=== PATIENT | female | born 1995 | race Two or more races ===

== ENCOUNTER 2020-09-14 00:09 | Emergency (ER) | payer MEDICAID, OTHER ==
[~2020-09-14] VITALS: Ht 167.6 cm; Wt 145.0 kg
[2020-09-14 00:28] VITALS: BP 189/90
[2020-09-14] MEDS ORDERED: CLINDAMYCIN HCL 150 MG CAPSULE PO ONE (00:45)
[2020-09-14] MEDS ORDERED: oxyCODONE/APAP 5/325 1 TAB TABLET PO ONE (00:45)
[2020-09-14] MEDS ORDERED: HYDR-2155 PO (00:47)
[2020-09-14] MEDS ORDERED: CLIN300C9 PO (00:47)
--- NOTE | 2020-09-14 00:47 | PHYS DOC ---
Past History Past Medical History: No Pertinent History Past Surgical History: Cholecystectomy, Oophorectomy Alcohol Use: None Adult General Chief Complaint Chief Complaint: DENTAL PROBLEM HPI HPI Patient is a 25-year-old female who presents with dental pain. States that her back right molar broke a few months ago and over the last couple of days it st arted causing her some pain, 7 out of 10, sharp in nature. States she has had trouble finding a dentist. States she has not taken anything for the pain. Denies any fevers, pain or trouble swallowing, neck pain, chest pain, shortness of breath, abdominal pain, nausea, vomiting. Review of Systems Review of Systems Review of systems otherwise unremarkable except noted in HPI Allergies Allergies Allergies Coded Allergies Type Severity Reaction Last Updated Verified Penicillins Allergy Unknown 09/14/20 Yes Physical Exam Physical Exam Constitutional: Well developed, well nourished, no acute distress, non-toxic appearance. [] HENT: Normocephalic, atraumatic, bilateral external ears normal, oropharynx moist, no oral exudates, back right lower molar with what appears to be a dental carry and chipped, nose normal. [] Neck: Normal range of motion, no tenderness, supple, no stridor, no lymphadenopathy. [] Cardiovascular:Heart rate regular rhythm, no murmur [] Lungs & Thorax: No respiratory distress Neurologic: Alert and oriented X 3, normal motor function, normal sensory function, no focal deficits noted. [] Psychologic: Affect normal, judgement normal, mood normal. [] Current Patient Data Vital Signs Vital Signs Date Time Temp Pulse Resp B/P (MAP) Pulse Ox O2 Delivery O2 Flow Rate FiO2 09/14/20 00:28 98.8 106 28 189/90 (123) 100 EKG EKG [] Radiology/Procedures Radiology/Procedures [] Heart Score C/O Chest Pain: No Risk Factors: Risk Factors: DM, Current or recent (<one month) smoker, HTN, HLP, family history of CAD, obesity. Risk Scores: Risk Factors: DM, Current or recent (<one month) smoker, HTN, HLP, family history of CAD, obesity. Course & Med Decision Making Course & Med Decision Making Patient is a 25-year-old female who presents with dental pain due to her right lower molar damage Vital signs not concerning. Physical exam noted above. Patient started on clindamycin in the ED, gave ibuprofen and oral pain medication. Patient politely declined dental block. Discussed all findings with patient advised taking course of antibiotics and given pain regimen at home. Given contact information for local dentist and emergency dentistry and advised to call first thing Wednesday morning. Gave return precautions to the ED. Patient grateful, verbalized understanding and agreed with plan of discharge. [] Dragon Disclaimer Dragon Disclaimer This electronic medical record was generated, in whole or in part, using a voice recognition dictation system. Departure Departure: Impression: Primary Impression: Pain, dental Additional Impression: Pain due to dental caries Disposition: HOME / SELF CARE / HOMELESS Condition: GOOD Referrals: SHER MORRISON (PCP) Patient Instructions: Dental Pain Additional Instructions: Please read all the attached information very carefully. Please begin your prescription pain medicine, ibuprofen, Orajel treatment at home as discussed. Please call the emergency dentist or one of the dentist at the information provided as soon as possible to set up a follow-up appointment for evaluation and possible need for root canal versus extraction. Please come back to the ED with new or concerning symptoms as discussed. Scripts Hydrocodone Bit/Acetaminophen (HYDROCODONE-APAP 5-325 ) 1 Each Tablet 1 TAB PO TID PRN for dental pain for 3 Days, #9 TAB 0 Refills Prov: LOGAN LAM MD 09/14/20 Clindamycin Hcl (CLINDAMYCIN HCL) 300 Mg Capsule 1 CAP PO TID for dental pain for 7 Days, #21 CAP Prov: LOGAN LAM MD 09/14/20 Problem Qualifiers LOGAN LAM MD September 14, 2020 00:47
[2020-09-14] MEDS ORDERED: IBUPROFEN 800 MG TABLET. PO ONE (01:00)
== END 2020-09-14 00:57 | disposition home or self-care (01) ==
LOC: ER 00:09
DX: K02.9 Dental caries, unspecified (principal); Z88.0 Allergy status to penicillin; Z90.49 Acquired absence of other specified parts of digestive tract
CPT/HCPCS: 99284-25

== ENCOUNTER 2021-04-23 20:19 | Emergency (ER) | payer OTHER ==
[~2021-04-23] VITALS: Ht 167.6 cm; Wt 145.0 kg
[~2021-04-23 20:19] MED LIST: CLIN-95 PO; HYDR-2155 PO
--- NOTE | 2021-04-23 21:06 | PHYS DOC ---
Past History Past Medical History: No Pertinent History, Bronchitis Past Surgical History: Cholecystectomy, Oophorectomy Alcohol Use: None General Adult EDM: Chief Complaint: FEVER HPI: HPI: ".. I almost passed out at home.. I was diagnosed with COVID on . the 04/18.. I did not get the vaccination..." .. " I am so short of breath.. that it made me almost pass out.. " Patient is a 25 year old female who presents with above hx and complaints increased dyspnea, fever, malaise, arthralgia, myalgia and near syncope. Patient diagnosed Covid on 04/18. Patient did not get the vaccination. Patient did not get flu vaccination. Patient has not gotten Pneumovax. Patient does have a history of asthma and morbid obesity. Review of Systems: Review of Systems: Constitutional: Subjective complaints of fever or chills Eyes: Denies change in visual acuity HENT: Denies nasal congestion or sore throat Respiratory: Complains of a nonproductive cough, wheezing and shortness of breath Cardiovascular: Denies chest pain or edema GI: Denies abdominal pain, nausea, vomiting, bloody stools or diarrhea : Denies dysuria Musculoskeletal: Denies back pain or joint pain Integument: Denies rash Neurologic: Denies headache, focal weakness or sensory changes Endocrine: Denies polyuria or polydipsia Lymphatic: Denies swollen glands Psychiatric: Denies depression or anxiety Family History: Family History: Noncontributory to presentation Current Medications: Current Meds: See nursing for home meds Allergies: Allergies: Allergies Coded Allergies Type Severity Reaction Last Updated Verified Penicillins Allergy Unknown 09/14/20 Yes Physical Exam: PE: Constitutional: no acute distress, non-toxic appearance. [] HENT: Normocephalic, atraumatic, bilateral external ears normal, oropharynx moist, no oral exudates, nose normal. [] Eyes: PERRLA, EOMI, conjunctiva normal, no discharge. [] Neck: Normal range of motion, no tenderness, supple, no stridor. [] Cardiovascular: Tachycardia heart rate regular rhythm, no murmur [] Lungs & Thorax: Bilateral breath sounds clear to auscultation [] Abdomen: Bowel sounds normal, soft, no tenderness, no masses, no pulsatile masses. Morbid obesity. Old surgery scars. Skin: Warm, dry, no erythema, no rash. [] Back: No tenderness, no CVA tenderness. [] Extremities: No tenderness, no cyanosis, no clubbing, ROM intact, no edema. No cording appreciated Neurologic: Alert and oriented X 3, normal motor function, normal sensory function, no focal deficits noted. [] Psychologic: Affect normal, judgement normal, mood normal. [] EKG: EKG: My interpretation of patient's EKG shows a sinus tachycardia 114 bpm. No acute findings of STEMI with contralateral changes. Time of EKG is 2217 hrs. [] Radiology/Procedures: Radiology/Procedures: [][address] [id number] IMAGING REPORT Signed PATIENT: DUGLAS FERNANDEZ ACCOUNT: [id number] : 1995 LOCATION: ER AGE: 25 SEX: F EXAM STATUS: REG ER ORD. PHYSICIAN: IVETTE DOUGLASS MD REASON: dyspnea, cough, congestion, Covid Omni 350 100cc PROCEDURE: CT ANGIOGRAPHY CHEST EXAM: CT ANGIOGRAPHY OF THE CHEST WITH AND WITHOUT CONTRAST. HISTORY: Cough, dyspnea. TECHNIQUE: Computed tomographic angiography of the chest was performed before and after the intravenous administration of iodinated contrast. 3-D maximum intensity projections were also performed. One or more of the following individualized dose reduction techniques were utilized for this examination: 1. Automated exposure control. 2. Adjustment of the mA and/or kV according to patient size. 3. Use of iterative reconstruction technique. COMPARISON: None. FINDINGS: Images of the upper abdomen reveal diffuse hepatic steatosis. The spleen is enlarged at 15.6 cm. The gallbladder is surgically absent. Bone windows reveal no suspicious lesions. No pulmonary emboli are identified. There is no aortic dissection or aneurysm. Prominent mediastinal and hilar lymph nodes are likely reactive in this setting. There is no pleural or pericardial effusion. The heart is not enlarged. Multifocal groundglass infiltrates are consistent with atypical pneumonia. IMPRESSION: 1. No pulmonary embolism. 2. Multifocal infiltrates consistent with atypical pneumonia. 3. Diffuse hepatic steatosis and hepatomegaly. Electronically signed by: Geraldo Bateman MD (04/23/2021 11:21 PM) [facility] DICTATED AND SIGNED BY: HELEN BATEMAN MD DATE: 04/23/212311 CC: IVETTE DOUGLASS MD; SHER MORRISON ~MTH0 0 [facility] [place] [id number] IMAGING REPORT Signed PATIENT: DUGLAS FERNANDEZ ACCOUNT: [id number] : 1995 LOCATION: ER AGE: 25 SEX: F EXAM STATUS: REG ER ORD. PHYSICIAN: IVETTE DOUGLASS MD REASON: COVID Dx. , dyspnea, cough, congestion PROCEDURE: CHEST AP ONLY EXAM: CHEST ONE VIEW. HISTORY: Dyspnea, cough, COVID-19. COMPARISON: Today's CT. FINDINGS: A frontal view of the chest is obtained. Multifocal airspace infiltrates are consistent with atypical pneumonia. The inspiration is small. There is no pneumothorax or pleural effusion. The heart is not enlarged. Cholecystectomy clips are noted. IMPRESSION: 1. Multifocal infiltrates consistent with atypical pneumonia. Electronically signed by: Geraldo Bateman MD (04/23/2021 11:22 PM) [facility] DICTATED AND SIGNED BY: HELEN BATEMAN MD DATE: 04/23/212320 CC: IVETTE DOUGLASS MD; SHER MORRISON ~MTH0 0 Heart Score: C/O Chest Pain: N/A HEART Score for Chest Pain: HEART Score for Chest Pain Response (Comments) Value History Moderately Suspicious 1 ECG Normal 0 Age < 45 0 Risk Factors 1 or 2 Risk Factors 1 Troponin < Normal Limit 0 Total 2 Risk Factors: Risk Factors: DM, Current or recent (<one month) smoker, HTN, HLP, family history of CAD, obesity. Risk Scores: Score 0 - 3: 2.5% MACE over next 6 weeks - Discharge Home Score 4 - 6: 20.3% MACE over next 6 weeks - Admit for Clinical Observation Score 7 - 10: 72.7% MACE over next 6 weeks - Early Invasive Strategies Course & Med Decision Making: Course & Med Decision Making Pertinent Labs and Imaging studies reviewed. (See chart for details) Patient use MDI 2 puffs 4 times a day. Follow-up primary care. Push fluids. Follow-up urine cultures. Take at this time next to 50 a day. Tylenol and ibuprofen as needed for discomfort. Patient taking Zithromax 250 mg a day for the next 5 days. Take Eliquis 10 mg twice a day for the next week. Follow-up primary care. Practice incentive spirometry. Return if any concerns. Follow- up urine cultures. Impression: 1. Covid infection 2. Urinary tract infection [] Dragon Disclaimer: Dragon Disclaimer: This electronic medical record was generated, in whole or in part, using a voice recognition dictation system. Departure Departure: Referrals: SHER MORRISON (PCP) Scripts Apixaban (ELIQUIS) 5 Mg Tablet 10 MG PO BID for covid for 7 Days, #28 TAB Prov: IVETTE DOUGLASS MD 04/23/21 Fluconazole (DIFLUCAN) 100 Mg Tablet 100 MG PO DAILY for post antibiotics for 3 Days, #3 TAB Prov: IVETTE DOUGLASS MD 04/23/21 Azithromycin (ZITHROMAX) 250 Mg Tablet 250 MG PO DAILY for ANTI-BIOTIC for 5 Days, #5 TAB 0 Refills Prov: IVETTE DOUGLASS MD 04/23/21 IVETTE DOUGLASS MD Apr 23, 2021 21:06
[2021-04-23] MEDS ORDERED: AZITHROMYCIN 250 MG TABLET. PO ONE (21:45)
[2021-04-23] MEDS ORDERED: IV RINGERS SOLUTION,LACTATED 1,000 ML IV SCH (21:45)
[2021-04-23] MEDS ORDERED: ASPIRIN CHEWABLE 81 MG TABLET. PO ONE (21:45)
[2021-04-23] MEDS ORDERED: ALBUTEROL SULFATE 8GM INHALER. INH ONE (21:45)
[2021-04-23] MEDS ORDERED: IOHEXOL 350 MG/ML 100 ML VIAL. IV ONE (22:00)
[2021-04-23 22:09] VITALS: BP 148/84
[2021-04-23 22:13] LABS: COLOR,URINE YELLOW
[2021-04-23 22:14] LABS: BILIRUBIN,URINE SMALL (NEG); CLARITY,URINE HAZY; GLUCOSE,URINE NEG (NEG); NITRITE,URINE POS (NEG)
[2021-04-23 22:15] LABS: BASO # 0.1 x10^3/uL (0.0-0.2); BASO % 1 % (0-3); EOS % 0 % (0-3); HEMATOCRIT 39.6 % (36.0-47.0); HEMOGLOBIN 13.1 g/dL (12.0-15.5); LYMPH # 0.9 x10^3/uL (1.0-4.8); LYMPH % 13 % (24-48); MEAN CORPUSCULAR HEMOGLOBIN 29 pg (25-35); MEAN CORPUSCULAR HGB CONC 33 g/dL (31-37); MEAN CORPUSCULAR VOLUME 88 fL (79-100); MONO # 0.4 x10^3/uL (0.0-1.1); MONO % 5 % (0-9); NEUT # 5.5 x10^3uL (1.8-7.7); NEUT % 81 % (31-73); PLATELET COUNT 151 x10^3/uL (140-400); RED BLOOD COUNT 4.53 x10^6/uL (3.50-5.40); RED CELL DISTRIBUTION WIDTH 14.7 % (11.5-14.5); U PREG PATIENT NEGATIVE (NEG); WHITE BLOOD COUNT 6.8 x10^3/uL (4.0-11.0)
[2021-04-23 22:23] LABS: AMPHETAMINE/METHAMPHETAMINE NEG (NEG); BARBITURATES NEG (NEG); BENZODIAZEPINES NEG (NEG); CANNABINOIDS NEG (NEG); COCAINE NEG (NEG); METHADONE NEG (NEG); OPIATES NEG (NEG); PHENCYCLIDINE NEG (NEG)
[2021-04-23 22:49] LABS: BGAS PH 7.54 (7.35-7.45)
--- NOTE | 2021-04-23 23:24 | RAD ---
EXAM: CT ANGIOGRAPHY OF THE CHEST WITH AND WITHOUT CONTRAST. HISTORY: Cough, dyspnea. TECHNIQUE: Computed tomographic angiography of the chest was performed before and after the intraveno us administration of iodinated contrast. 3-D maximum intensity projections were also performed. One o r more of the following individualized dose reduction techniques were utilized for this examination: 1. Automated exposure control. 2. Adjustment of the mA and/or kV according to patient size. 3. Use of iterative reconstruction technique. COMPARISON: None. FINDINGS: Images of the upper abdomen reveal diffuse hepatic steatosis. The spleen is enlarged at 15. 6 cm. The gallbladder is surgically absent. Bone windows reveal no suspicious lesions. No pulmonary emboli are identified. There is no aortic dissection or aneurysm. Prominent mediastinal and hilar lymph nodes are likely reactive in this setting. There is no pleural or pericardial effusion. The heart is not enlarged. Multifocal groundglass infiltrates are consistent with atypical pneumonia. IMPRESSION: 1. No pulmonary embolism. 2. Multifocal infiltrates consistent with atypical pneumonia. 3. Diffuse hepatic steatosis and hepatomegaly. Electronically signed by: Geraldo Bateman MD (04/23/2021 11:21 PM) [facility]
--- NOTE | 2021-04-23 23:24 | RAD ---
EXAM: CHEST ONE VIEW. HISTORY: Dyspnea, cough, COVID-19. COMPARISON: Today's CT. FINDINGS: A frontal view of the chest is obtained. Multifocal airspace infiltrates are consistent with atypical pneumonia. The inspiration is small. The re is no pneumothorax or pleural effusion. The heart is not enlarged. Cholecystectomy clips are noted . IMPRESSION: 1. Multifocal infiltrates consistent with atypical pneumonia. Electronically signed by: Geraldo Bateman MD (04/23/2021 11:22 PM) [facility]
[2021-04-23] MEDS ORDERED: FLUC100T7 PO (23:49)
[2021-04-23] MEDS ORDERED: APIX5TAB3 PO (23:49)
[2021-04-23] MEDS ORDERED: AZIT250T PO (23:49)
[2021-04-24] LABS: CALCIUM 7.7 mg/dL (8.5-10.1); GFR 67.6
[2021-04-24] MEDS ORDERED: APIXABAN 5 MG TABLET. ONE (00:10)
[2021-04-24] MEDS: APIXABAN 5 MG TABLET. PO SCH ×2 (00:12→00:32)
[2021-04-24 00:15] LABS: ALBUMIN 3.1 g/dL (3.4-5.0); DIRECT BILIRUBIN 0.2 mg/dL (0.0-0.2); MAGNESIUM 2.4 mg/dL (1.8-2.4); TOTAL BILIRUBIN 0.4 mg/dL (0.2-1.0); TOTAL PROTEIN 7.5 g/dL (6.4-8.2)
[2021-04-24] MEDS ORDERED: ACETAMINOPHEN 500 MG TABLET PO ONE (00:15)
--- NOTE | 2021-04-24 02:43 | EKG ---
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
[2021-04-24] MEDS ORDERED: ENOX150D SQ (18:54)
== END 2021-04-24 00:34 | disposition home or self-care (01) ==
LOC: ER 20:19
DX: U07.1 COVID-19 (principal); N39.0 Urinary tract infection, site not specified; Z88.0 Allergy status to penicillin; Z90.49 Acquired absence of other specified parts of digestive tract
CPT/HCPCS: 36415; 36600; 71045; 71275; 80048; 80076; 80307; 81003; 81025; 82550; 82803; 83690; 83735; 83880; 84443; 84484; 85025; 85610; 85730; 93005; 94640; 96360; 96361; 99285; J7120; Q9967; 94664

== ENCOUNTER 2021-04-24 16:42 | Emergency (ER) | payer OTHER ==
[~2021-04-24] VITALS: Ht 167.6 cm; Wt 145.0 kg
[~2021-04-24 16:42] MED LIST changes: +APIX5TAB3 PO; +AZIT250T PO; +FLUC100T7 PO
--- NOTE | 2021-04-24 18:32 | PHYS DOC ---
Past History Past Medical History: No Pertinent History, Bronchitis Past Surgical History: No Surgical History Alcohol Use: None General Adult EDM: Chief Complaint: DYSPNEA/RESPIRATOY DISTRESS HPI: HPI: Patient is a 25 year old female who presents with above hx and complaints of fever and COVID +. as of 04/18. Patient seen 04/23/2021 by this physician. Patient concerned because at home she checked her sat and it was in the 80s. Patient refused to get vaccination distally now upset she has contracted Covid. Patient is morbidly obese patient did undergo. CT of contrast last night no findings of pulmonary embolism identified. Did have findings of multifocal groundglass infiltrates consistent with atypical pneumonia. Did have findings hepatic steatosis and hepatomegaly. Patient has been running fever however did not take any Tylenol or ibuprofen. Review of Systems: Review of Systems: Constitutional: Denies fever or chills Eyes: Denies change in visual acuity HENT: Denies nasal congestion or sore throat Respiratory: Denies cough or shortness of breath Cardiovascular: Denies chest pain or edema GI: Denies abdominal pain, nausea, vomiting, bloody stools or diarrhea : Denies dysuria Musculoskeletal: Denies back pain or joint pain Integument: Denies rash Neurologic: Denies headache, focal weakness or sensory changes Endocrine: Denies polyuria or polydipsia Lymphatic: Denies swollen glands Psychiatric: Denies depression or anxiety Family History: Family History: Noncontributory Current Medications: Current Meds: Current Medications Medications (Trade) Dose Ordered Sig/Kvng Start Time Stop Time Status Last Admin Dose Admin Acetaminophen (Tylenol) 1,000 mg 1X ONCE 04/24/21 18:45 04/24/21 18:46 Ondansetron HCl (Zofran Odt) 4 mg 1X ONCE 04/24/21 18:45 04/24/21 18:46 Allergies: Allergies: Allergies Coded Allergies Type Severity Reaction Last Updated Verified Penicillins Allergy Unknown 09/14/20 Yes Physical Exam: PE: Constitutional: Moderate acute distress, non-toxic appearance. [] HENT: Normocephalic, atraumatic, bilateral external ears normal, oropharynx moist, no oral exudates, nose swollen turbinates clear rhinorrhea Eyes: PERRLA, EOMI, conjunctiva normal, no discharge. [] Neck: Normal range of motion, no tenderness, supple, no stridor. [] Cardiovascular: Tachycardia heart rate regular rhythm, no murmur [] Lungs & Thorax: Bilateral breath sounds clear to auscultation [] Abdomen: Bowel sounds equal apex soft, no tenderness, no masses, no pulsatile masses. Basilar crackles bilaterally. Skin: Warm, dry, no erythema, no rash. [] Back: No tenderness, no CVA tenderness. [] Extremities: No tenderness, no cyanosis, no clubbing, ROM intact, no edema. No cording appreciated Neurologic: Alert and oriented X 3, normal motor function, normal sensory function, no focal deficits noted. [] Psychologic: Affect anxious, judgement normal, mood normal. [] EKG: EKG: [] Radiology/Procedures: Radiology/Procedures: [] Heart Score: C/O Chest Pain: N/A Risk Factors: Risk Factors: DM, Current or recent (<one month) smoker, HTN, HLP, family history of CAD, obesity. Risk Scores: Score 0 - 3: 2.5% MACE over next 6 weeks - Discharge Home Score 4 - 6: 20.3% MACE over next 6 weeks - Admit for Clinical Observation Score 7 - 10: 72.7% MACE over next 6 weeks - Early Invasive Strategies Course & Med Decision Making: Course & Med Decision Making Pertinent Labs and Imaging studies reviewed. (See chart for details) Pt. declines repeat ABG to verify oxygen and CO 2 levels. Patient continue her MDI 2 puffs 4 times a day. Follow-up primary care. Continue Zithromax 250 a day. Continue Eliquis 10 mg twice a day for the next week. Must practice incentive spirometry. Return if any concerns. Instructed patient on use of pulse ox.. Hand mostly warm before application of pulse ox. Pt. to return if any concerns. Impression: 1. COVID pneumonia 2. Urinary tract infection 3. Morbid obesity [] Dragon Disclaimer: Dragon Disclaimer: This electronic medical record was generated, in whole or in part, using a voice recognition dictation system. Departure Departure: Referrals: SHER MORRISON (PCP) Scripts Enoxaparin Sodium (LOVENOX) 150 Mg/1 Ml Disp.syrin 150 MG SQ DAILY for COVID, #10 DIS.SYR Prov: IVETTE DOUGLASS MD 04/24/21 David Disclaimer This chart was dictated in whole or in part using Voice Recognition software in a busy, high-work load, and often noisy Emergency Department environment. It may contain unintended and wholly unrecognized errors or omissions. Dragon Disclaimer This chart was dictated in whole or in part using Voice Recognition software in a busy, high-work load, and often noisy Emergency Department environment. It may contain unintended and wholly unrecognized errors or omissions. IVETTE DOUGLASS MD Apr 24, 2021 18:32
[2021-04-24] MEDS ORDERED: ACETAMINOPHEN 500 MG TABLET PO ONE (18:45)
[2021-04-24] MEDS ORDERED: ONDANSETRON ODT 4 MG TAB.RAPDIS PO ONE (18:45)
[2021-04-24 18:49] VITALS: BP 148/84
[2021-04-24] MEDS ORDERED: ENOX150D SQ (18:54)
[2021-04-24] MEDS ORDERED: IBUPROFEN 600 MG TABLET. PO ONE (19:30)
[2021-04-24] MEDS ORDERED: ENOXAPARIN ** NOTE DOSE ** SYRINGE SQ ONE (19:30)
== END 2021-04-24 19:14 | disposition home or self-care (01) ==
LOC: ER 16:42
DX: U07.1 COVID-19 (principal); J12.82 Pneumonia due to coronavirus disease 2019; N39.0 Urinary tract infection, site not specified; E66.01 Morbid (severe) obesity due to excess calories; Z68.43 Body mass index [BMI] 50.0-59.9, adult; Z88.0 Allergy status to penicillin
CPT/HCPCS: 99284; G0238; Q0162

== ENCOUNTER 2021-04-25 06:48 | Emergency (ER) | payer OTHER ==
[~2021-04-25] VITALS: Ht 167.6 cm; Wt 145.0 kg
[~2021-04-25 06:48] MED LIST changes: +ENOX150D SQ
[2021-04-25 06:50] VITALS: BP 137/76
--- NOTE | 2021-04-25 07:56 | PHYS DOC ---
Past History Past Medical History: No Pertinent History, Bronchitis Past Surgical History: No Surgical History Alcohol Use: None General Adult EDM: Chief Complaint: SHORTNESS OF BREATH HPI: HPI: Patient is a 25-year-old female here for her third visit for shortness of breath after kym COVID-19. Patient had extensive work-up 2 days ago. Patient states her oxygen is dropping down to 80s on her home pulse ox, was seen yesterday stating she was having oxygen saturations in the 80s Review of Systems: Review of Systems: All other systems within normal limits except for as noted in the HPI Allergies: Allergies: Allergies Coded Allergies Type Severity Reaction Last Updated Verified Penicillins Allergy Unknown 09/14/20 Yes Physical Exam: PE: Constitutional: Well developed, well nourished, no acute distress, non-toxic appearance. [] HENT: Normocephalic, atraumatic, bilateral external ears normal, nose normal. [] Eyes: PERRLA, conjunctiva normal, no discharge. [] Neck: No rigidity, supple, no stridor. [] Cardiovascular: Regular rate and rhythm, brisk cap refill [] Lungs & Thorax: Non labored symmetric respirations, no tachypnea or respiratory distress [] Abdomen: Soft, nondistended. Skin: Warm, dry, no erythema, no rash. [] Back: Unremarkable Extremities: No deformities, range of motion grossly intact, no lower extremity edema [] Neurologic: Alert and oriented X 3, no focal deficits noted. [] Psychologic: Affect normal, judgement normal, mood normal. [] EKG: EKG: [] Radiology/Procedures: Radiology/Procedures: Patient is oxygen saturation in the mid to low 90s, discussed with patient that she needs to use her inhaler and given a spacer and instructed on proper use [] Heart Score: C/O Chest Pain: No Risk Factors: Risk Factors: DM, Current or recent (<one month) smoker, HTN, HLP, family history of CAD, obesity. Risk Scores: Score 0 - 3: 2.5% MACE over next 6 weeks - Discharge Home Score 4 - 6: 20.3% MACE over next 6 weeks - Admit for Clinical Observation Score 7 - 10: 72.7% MACE over next 6 weeks - Early Invasive Strategies Course & Med Decision Making: Course & Med Decision Making Pertinent Labs and Imaging studies reviewed. (See chart for details) [] Dragon Disclaimer: Dragon Disclaimer: This electronic medical record was generated, in whole or in part, using a voice recognition dictation system. Departure Departure: Impression: Primary Impression: COVID Disposition: 01 HOME / SELF CARE / HOMELESS Condition: STABLE Referrals: SHER MORRISON (PCP) Patient Instructions: Metered Dose Inhaler with Spacer SEGUNDO FIELD MD Apr 25, 2021 07:56
== END 2021-04-25 08:30 | disposition home or self-care (01) ==
LOC: ER 06:48
DX: U07.1 COVID-19 (principal); Z88.0 Allergy status to penicillin
CPT/HCPCS: 99281

== ENCOUNTER 2021-04-26 06:23 | Inpatient (IN) | payer OTHER ==
[~2021-04-26] VITALS: Ht 167.6 cm; Wt 142.2 kg
--- NOTE | 2021-04-26 06:29 | PHYS DOC ---
Past History Past Medical History: Asthma, Bronchitis Past Surgical History: No Surgical History Alcohol Use: None Adult General HPI HPI Patient is a 25-year-old female presenting for COVID-19 symptoms. Reports she was confirmed Covid positive April 18. Reports her symptoms that are mostly respiratory in origin have prompted her to come in past 4 days, she has been here every day since April 23 for evaluation. She continues to complain of shortness of breath and reported desaturations with lowest in the 60s while at home per her pulse ox. Continues to take prescribed a Zithromax, PE Tx dose of Eliquis and MDI inhalers. No recent fevers, syncope, chills, neck pain or nuchal rigidity, chest pain, ripping or tearing in chest, abdominal pain, GI symptoms, changes in motor or sensory or neuro function. She was unvaccinated against COVID-19 Review of Systems Review of Systems Fourteen body systems of review of systems have been reviewed. See HPI for pertinent positives and negative responses, other sommers all other systems are negative, non-pertinent or non-contributory Allergies Allergies Allergies Coded Allergies Type Severity Reaction Last Updated Verified Penicillins Allergy Unknown 09/14/20 Yes Physical Exam Physical Exam Constitutional: Well developed, well nourished and morbidly obese, no acute distress and speaking in full sentences, non-toxic appearance. HENT: Normocephalic, atraumatic, bilateral external ears normal, oropharynx moist, no oral exudates, nose normal. Eyes: PERRLA, EOMI, conjunctiva normal, no discharge. Neck: Normal range of motion, no tenderness, supple, no stridor. Cardiovascular: Heart rate tachycardic, sinus rhythm, no murmurs rubs or gallops Lungs & Thorax: No overt respiratory distress but there is increased work of breathing, patient speaking in full sentences, there are copious rhonchi to auscultation globally Abdomen: Bowel sounds normal, soft and protuberant, no tenderness, no masses, no pulsatile masses. Nonsurgical abdomen, no peritoneal signs Skin: Warm, dry, no erythema, no rash. Back: No tenderness, no CVA tenderness. Extremities: No tenderness, no cyanosis, no clubbing, ROM intact, no edema. Neurologic: Alert and oriented X 3, grossly normal motor & sensory function, no focal deficits noted. Psychologic: Anxious affect and mood Current Patient Data Vital Signs Vital Signs Date Time Temp Pulse Resp B/P (MAP) Pulse Ox O2 Delivery O2 Flow Rate FiO2 04/26/21 06:43 101.6 132 18 132/83 (99) 94 Nasal Cannula 3.0 Vital Signs Date Time Temp Pulse Resp B/P (MAP) Pulse Ox O2 Delivery O2 Flow Rate FiO2 04/26/21 06:43 101.6 132 18 132/83 (99) 94 Nasal Cannula 3.0 Lab Results Laboratory Tests Test 04/26/21 07:10 04/26/21 08:51 White Blood Count 6.9 x10^3/uL Red Blood Count 4.23 x10^6/uL Hemoglobin 12.3 g/dL Hematocrit 37.0 % Mean Corpuscular Volume 87 fL Mean Corpuscular Hemoglobin 29 pg Mean Corpuscular Hemoglobin Concent 33 g/dL Red Cell Distribution Width 14.5 % Platelet Count 192 x10^3/uL Neutrophils (%) (Auto) 81 % Lymphocytes (%) (Auto) 14 % Monocytes (%) (Auto) 5 % Eosinophils (%) (Auto) 0 % Basophils (%) (Auto) 0 % Neutrophils # (Auto) 5.6 x10^3uL Lymphocytes # (Auto) 1.0 x10^3/uL Monocytes # (Auto) 0.3 x10^3/uL Eosinophils # (Auto) 0.0 x10^3/uL Basophils # (Auto) 0.0 x10^3/uL Prothrombin Time 10.0 SEC Prothromb Time International Ratio 1.0 Activated Partial Thromboplast Time 26 SEC Bedside Venous pH 7.44 Bedside Venous pCO2 44 mmHg Bedside Venous pO2 36 mmHg Venous Blood HCO3 30 mmol/L POC Venous O2 Saturation ([place]) 71 % Bedside FiO2 21 Sodium Level 137 mmol/L Potassium Level 4.1 mmol/L Chloride Level 100 mmol/L Carbon Dioxide Level 27 mmol/L Anion Gap 10 Blood Urea Nitrogen 9 mg/dL Creatinine 0.7 mg/dL Estimated GFR (Cockcroft-Gault) 102.0 BUN/Creatinine Ratio 13 Glucose Level 117 mg/dL Lactic Acid Level 0.5 mmol/L Calcium Level 8.4 mg/dL Magnesium Level 2.6 mg/dL Total Bilirubin 0.5 mg/dL Aspartate Amino Transf (AST/SGOT) 150 U/L Alanine Aminotransferase (ALT/SGPT) 145 U/L Alkaline Phosphatase 75 U/L Troponin I High Sensitivity 4 ng/L NV-Rqu-N-Type Natriuretic Peptide 16 pg/mL Total Protein 7.9 g/dL Albumin 2.8 g/dL Albumin/Globulin Ratio 0.5 Influenza Type A (Rapid) Negative Influenza Type B (Rapid) Negative SARS-CoV-2 Antigen (Rapid) Negative Current Medications Medications (Trade) Dose Ordered Sig/Kvng Route PRN Reason Start Time Stop Time Status Last Admin Dose Admin Ceftriaxone Sodium 1 gm/ Sodium Chloride 50 ml @ 100 mls/hr 1X ONCE IV 04/26/21 06:45 04/26/21 07:14 DC 04/26/21 07:55 Sodium Chloride 1,000 ml @ 1,000 mls/hr 1X ONCE IV 04/26/21 06:45 04/26/21 07:44 DC 04/26/21 06:45 Acetaminophen (Tylenol) 1,000 mg 1X ONCE PO 04/26/21 07:15 04/26/21 07:16 DC 04/26/21 07:55 Sodium Chloride 50 ml @ As Directed STK-MED ONCE .ROUTE 04/26/21 07:50 04/26/21 07:50 DC Ceftriaxone Sodium (Rocephin) 1 gm STK-MED ONCE .ROUTE 04/26/21 07:50 04/26/21 07:50 DC Dexamethasone Sodium Phosphate (Decadron) 6 mg 1X ONCE IVP 04/26/21 08:00 04/26/21 08:02 DC 04/26/21 08:42 Acetaminophen (Tylenol) 650 mg PRN Q4HRS PRN PO FEVER > 100.3'F 04/26/21 09:15 04/27/21 09:14 Nitroglycerin (Nitrostat) 0.4 mg PRN Q5MIN PRN SL CHEST PAIN 04/26/21 09:15 04/27/21 09:14 EKG EKG EKG ordered and interpreted by myself at 0757 hrs. as sinus tachycardia at 113 bpm, unremarkable intervals, no axis deviation, T wave inversion noted in lead III, no STEMI Radiology/Procedures Radiology/Procedures XR CHEST 1V supine Clinical Indication: Reason: shob / Spl. Instructions: / History: Comparison: AP chest April 23, 2021. Findings: The cardiomediastinal silhouette is normal. Diffuse bilateral patchy airspace opacities are mildly worse. There are low lung volumes. There is no pneumothorax. No pleural effusion is appreciated. No acute bone abnormality. IMPRESSION: Diffuse bilateral pulmonary opacities are mildly worse. Electronically signed by: Bala Dumont MD (04/26/2021 7:17 AM) [facility] Heart Score C/O Chest Pain: No HEART Score for Chest Pain: HEART Score for Chest Pain Response (Comments) Value History Slighlty/Non-Suspicious 0 ECG Normal 0 Age < 45 0 Risk Factors 1 or 2 Risk Factors 1 Troponin < Normal Limit 0 Total 1 Risk Factors: Risk Factors: DM, Current or recent (<one month) smoker, HTN, HLP, family history of CAD, obesity. Risk Scores: Risk Factors: DM, Current or recent (<one month) smoker, HTN, HLP, family history of CAD, obesity. Course & Med Decision Making Course & Med Decision Making Airway patent, increased work of breathing, IV access and vitals obtained concerning for tachycardia and fever HPI physical exam and comprehensive ER work-up concerning for sepsis with source being COVID-19 pneumonia with recent outpatient positive test April 16, 2021 in an unvaccinated individual. She is high risk given obesity and asthma risk factors Steroids, antibiotics, antipyretics and supplemental oxygen administered. She is not fit for discharge home as she is requiring higher level of care than can be provided at home and still on supplemental oxygen, she was excepted under care of Dr. Martin for inpatient admission Dragon Disclaimer Dragon Disclaimer This electronic medical record was generated, in whole or in part, using a voice recognition dictation system. Departure Departure: Impression: Primary Impression: Pneumonia due to COVID-19 virus Additional Impression: Acute hypoxemic respiratory failure due to COVID-19 Disposition: ADMITTED INPATIENT Admitting Physician: Hosea Martin Condition: STABLE Referrals: SHER MORRISON (PCP) Problem Qualifiers NEISHA CASTRO DO Apr 26, 2021 06:29
[2021-04-26] MEDS ORDERED: IV NORMAL SALINE 1,000ML 1,000 ML IV ONE (06:45)
[2021-04-26] MEDS ORDERED: ACETAMINOPHEN 500 MG TABLET PO ONE ×2 (07:15→19:00)
--- NOTE | 2021-04-26 07:19 | RAD ---
XR CHEST 1V supine Clinical Indication: Reason: shob / Spl. Instructions: / History: Comparison: AP chest April 23, 2021. Findings: The cardiomediastinal silhouette is normal. Diffuse bilateral patchy airspace opacities are mildly wo rse. There are low lung volumes. There is no pneumothorax. No pleural effusion is appreciated. No acu te bone abnormality. IMPRESSION: Diffuse bilateral pulmonary opacities are mildly worse. Electronically signed by: Bala Dumont MD (04/26/2021 7:17 AM) [facility]
[2021-04-26] MEDS ORDERED: cefTRIAXone SODIUM 1 GM VIAL ONE (07:50)
[2021-04-26] MEDS ORDERED: IV NORMAL SALINE 50ML 50 ML ONE (07:50)
[2021-04-26] MEDS ORDERED: DEXAMETHASONE SOD PHOS 4 MG/ML VIAL. IVP ONE (08:00)
--- NOTE | 2021-04-26 08:01 | EKG ---
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
[2021-04-26 08:23] LABS: BASO % 0 % (0-3); EOS % 0 % (0-3); HEMOGLOBIN 12.3 g/dL (12.0-15.5); LYMPH % 14 % (24-48); MEAN CORPUSCULAR HEMOGLOBIN 29 pg (25-35); MEAN CORPUSCULAR HGB CONC 33 g/dL (31-37); MEAN CORPUSCULAR VOLUME 87 fL (79-100); MONO # 0.3 x10^3/uL (0.0-1.1); MONO % 5 % (0-9); NEUT # 5.6 x10^3uL (1.8-7.7); NEUT % 81 % (31-73); PLATELET COUNT 192 x10^3/uL (140-400); RED BLOOD COUNT 4.23 x10^6/uL (3.50-5.40); RED CELL DISTRIBUTION WIDTH 14.5 % (11.5-14.5); WHITE BLOOD COUNT 6.9 x10^3/uL (4.0-11.0)
[2021-04-26 08:40] LABS: CALCIUM 8.4 mg/dL (8.5-10.1); CREATININE 0.7 mg/dL (0.6-1.0); POTASSIUM 4.1 mmol/L (3.5-5.1)
[2021-04-26 08:54] LABS: ALBUMIN 2.8 g/dL (3.4-5.0); ALBUMIN/GLOBULIN RATIO 0.5 (1.0-1.7); MAGNESIUM 2.6 mg/dL (1.8-2.4); TOTAL BILIRUBIN 0.5 mg/dL (0.2-1.0); TOTAL PROTEIN 7.9 g/dL (6.4-8.2)
[2021-04-26] MEDS ORDERED: ACETAMINOPHEN 325 MG TABLET PO PRN (09:15)
[2021-04-26] MEDS ORDERED: NITROGLYCERIN SUBLINGUAL 0.4 MG BOTTLE OF 25. SL PRN (09:15)
[2021-04-26 09:23] LABS: INFLUENZA A PATIENT NEGATIVE (NEGATIVE); INFLUENZA B PATIENT NEGATIVE (NEGATIVE)
[2021-04-26] MEDS ORDERED: ENOXAPARIN 40 MG/0.4 ML SYRINGE. SQ SCH (16:30)
[2021-04-26] MEDS ORDERED: ONDANSETRON PF 4 MG/2 ML VIAL. ONE (19:46)
[2021-04-27] MEDS ORDERED: DEXAMETHASONE SOD PHOS 4 MG/ML VIAL. IVP ONE (06:15)
[2021-04-27] MEDS ORDERED: AZITHROMYCIN 250 MG in IV NORMAL SALINE 250ML 250 ML IV ONE (06:15)
--- NOTE | 2021-04-27 06:29 | RAD ---
AP chest x-ray HISTORY: Shortness of breath. COMPARISON: Chest x-ray April 26, 2021 FINDINGS: Heart size normal. Mediastinal silhouette is normal. No pneumothorax. No pleural effusions. Bilateral pulmonary infiltrates stable. Bones unremarkable. IMPRESSION: The pulmonary infiltrates are stable. Electronically signed by: Lb Pérez MD (04/27/2021 6:27 AM) [facility]
[2021-04-27 09:02] LABS: BASO % 0 % (0-3); EOS % 0 % (0-3); HEMATOCRIT 38.1 % (36.0-47.0); HEMOGLOBIN 12.5 g/dL (12.0-15.5); LYMPH # 1.1 x10^3/uL (1.0-4.8); LYMPH % 23 % (24-48); MEAN CORPUSCULAR HEMOGLOBIN 29 pg (25-35); MEAN CORPUSCULAR HGB CONC 33 g/dL (31-37); MEAN CORPUSCULAR VOLUME 88 fL (79-100); MONO # 0.5 x10^3/uL (0.0-1.1); MONO % 10 % (0-9); NEUT # 3.2 x10^3uL (1.8-7.7); NEUT % 66 % (31-73); PLATELET COUNT 224 x10^3/uL (140-400); RED BLOOD COUNT 4.34 x10^6/uL (3.50-5.40); RED CELL DISTRIBUTION WIDTH 14.3 % (11.5-14.5); WHITE BLOOD COUNT 4.9 x10^3/uL (4.0-11.0)
[2021-04-27 09:04] LABS: CALCIUM 8.5 mg/dL (8.5-10.1); CREATININE 0.8 mg/dL (0.6-1.0); GFR 87.4; POTASSIUM 3.7 mmol/L (3.5-5.1)
[2021-04-27 09:11] LABS: ALBUMIN 2.7 g/dL (3.4-5.0); ALBUMIN/GLOBULIN RATIO 0.5 (1.0-1.7); TOTAL BILIRUBIN 0.5 mg/dL (0.2-1.0); TOTAL PROTEIN 7.8 g/dL (6.4-8.2)
[2021-04-27] MEDS ORDERED: IV NORMAL SALINE 250ML 250 ML ONE (09:12)
[2021-04-27] MEDS ORDERED: IV NORMAL SALINE 50ML 50 ML ONE (09:12)
[2021-04-27] MEDS ORDERED: cefTRIAXone SODIUM 1 GM VIAL ONE (09:12)
[2021-04-27] MEDS ORDERED: AZITHROMYCIN 500 MG VIAL. IV ONE (09:12)
--- NOTE | 2021-04-27 11:53 | HP ---
DATE OF SERVICE: 04/27/2021 ADMIT DATE: 04/26/2021 ATTENDING PHYSICIAN: Dr. Martin. CHIEF COMPLAINT: Shortness of breath. HISTORY OF PRESENT ILLNESS: The patient is a 25-year-old unvaccinated female with a diagnosis of COVID-19 pneumonia. She tested positive for COVID. She has been sick since 04/18/2021. She has been seen in the ED every day for the last 4 days starting 04/23/2021. Workup showed significant hypoxemia requiring oxygen. She was actually prescribed Zithromax, Eliquis and MD inhalers. She was not any better. Chest x-ray showed bilateral bibasilar infiltrates. She was still requiring 6-8 liters of oxygen. She is admitted for further treatment and evaluation. Unfortunately, she was unvaccinated against COVID-19. ALLERGIES: SHE HAS ALLERGIES TO PENICILLIN. She has had 4 live childbirths. There is no history of diabetes or hypertension. SOCIAL HISTORY: She is a nonsmoker. REVIEW OF SYSTEMS: All other systems reviewed and turned to be negative. Her main symptoms are pulmonary in nature, dyspnea with minimal exertion. PHYSICAL EXAMINATION: GENERAL: When I saw her, this is a pleasant young female. VITAL SIGNS: Initial vital signs showed a blood pressure of 128/70, pulse was 94 and regular, temperature 101.6 degrees Fahrenheit, oxygen saturation 95% on 6 liters by nasal cannula. HEENT: Head is without trauma. Pupils are reactive. Sclerae nonicteric. The oropharynx is clear. NECK: Supple. LUNGS: Coarse rhonchi bilaterally. CARDIOVASCULAR: Showed regular heart tones. ABDOMEN: Obese, protuberant. No organomegaly. Bowel sounds are hypoactive. EXTREMITIES: Show trace edema. NEUROLOGIC: Focally intact. SKIN: Warm and dry. PERTINENT LABORATORY STUDIES: The hemoglobin is 12.5 g/dL with a white count of 4900. Electrolytes within normal range. Serology is indeed positive for coronavirus. Chest x-ray and CT scan as noted. ASSESSMENT: 1. A 25-year-old female, unvaccinated patient with bilateral COVID pneumonia. 2. Acute hypoxemic respiratory failure requiring supplemental oxygen. 3. Morbid obesity. PLAN: 1. Admit to the inpatient unit. 2. Supplemental oxygen to be titrated. 3. Empiric Decadron. 4. Empiric Lovenox. 5. Diet as tolerated. SYH/PRE/SHA DR: YASMEEN/jessica TID: [id number] CC: Dr. Ale Aguilar
[2021-04-27 12:45] LABS: % LYMPHS 34 % (24-48); % MONOS 6 % (0-10); % SEGS 60 % (35-66); PLT ESTIMATE ADEQUATE (ADEQUATE)
[2021-04-27] MEDS ORDERED: CHOLECALCIFEROL (VITAMIN D3) 50,000 UNIT CAPSULE PO SCH (16:00)
[2021-04-27 16:41] VITALS: BP 126/71
[2021-04-27] MEDS: ZINC SULFATE 220 MG CAPSULE. PO SCH (18:26)
[2021-04-27] MEDS: BUDESONIDE 0.5 MG/2 ML NEBU NEB SCH (19:09)
[2021-04-27 19:15] VITALS: BP 112/64
[2021-04-27] MEDS: FAMOTIDINE 20 MG/2 ML VIAL IVP SCH (21:28)
[2021-04-27] MEDS: ENOXAPARIN ** NOTE DOSE ** SYRINGE SQ SCH (21:29)
[2021-04-27] MEDS ORDERED: ACETAMINOPHEN 325 MG TABLET PO ONE (21:35)
[2021-04-27 23:59] VITALS: BP 120/71
[2021-04-28 06:05] VITALS: BP 147/86
[2021-04-28] MEDS: ZINC SULFATE 220 MG CAPSULE. PO SCH (07:45)
[2021-04-28] MEDS: ASCORBIC ACID 1,000 MG TABLET PO SCH (07:45)
[2021-04-28] MEDS: FAMOTIDINE 20 MG/2 ML VIAL IVP SCH (07:46)
[2021-04-28] MEDS: DEXAMETHASONE SOD PHOS 10 MG/ML VIAL. IVP SCH (07:46)
[2021-04-28] MEDS: ENOXAPARIN ** NOTE DOSE ** SYRINGE SQ SCH ×2 (07:48→21:15)
[2021-04-28] MEDS: BUDESONIDE 0.5 MG/2 ML NEBU NEB SCH ×2 (08:21→21:21)
[2021-04-28] MEDS: IPRATRPIUM/ALBUTEROL 0.5/2.5MG 3 ML NEBU. NEB PRN (08:21)
[2021-04-28] MEDS: AZITHROMYCIN 500 MG in IV NORMAL SALINE 250ML 250 ML IV SCH (09:24)
[2021-04-28 10:09] VITALS: BP 121/74
--- NOTE | 2021-04-28 10:59 | NUR ---
NURSING NOTE PT WAS A&O THIS AM UPON ASSESSMENT AND MEDICATION ADMINISTRATION. 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 RIGHT FOREARM IV INFILTRATED UPON ASSESSMENT, IV REMOVED. ARM REDDENED AND SITE SWELLING OBSERVED, PT VOICED PAIN AT THE AREA. AFTER NEW IV STARTED IN LEFT FOREARM, PT CALLED NURSE STATION AND STATED THAT HER ARM WAS HURTING, THIS RN WENT TO ASSESS IV. IV FLUSHING FINE AND BLOOD RETURN WAS PRESENT. NO REDNESS OR SWELLING PRESENT. THIS RN ENSURED PT THAT THE IV WAS WORKING PROPERLY AND NO NEED TO BE REMOVED. WILL CONTINUE TO MONITOR. JANIE BARBER.
--- NOTE | 2021-04-28 12:48 | PN ---
DATE: 04/28/2021 ATTENDING PHYSICIAN: Dr. Martin. SUBJECTIVE: Still dyspneic with minimal exertion. OBJECTIVE FINDINGS: VITAL SIGNS: Blood pressure this morning is 121/74, temperature 99.0 degrees Fahrenheit, oxygen saturation 94% on 5 liters. HEENT: Head is without trauma. Pupils are reactive. Sclerae nonicteric. The oropharynx is clear. NECK: Supple, no bruits. CARDIOVASCULAR: Showed regular heart tones. No gallops. ABDOMEN: Soft. EXTREMITIES: Without edema. NEUROLOGIC: Focally intact. ASSESSMENT: 1. A 25-year-old female with COVID pneumonia. 2. Acute hypoxemic respiratory failure requiring high supplemental oxygen. 3. Morbid obesity. PLAN: 1. Continue inpatient care. 2. Supplemental oxygen to be weaned. 3. Empiric Lovenox. 4. Empiric steroids. YASMEEN/PRESTON DR: Rachna TID: [id number]
[2021-04-28 15:19] VITALS: BP 112/71
[2021-04-28] MEDS: ACETAMINOPHEN 500 MG TABLET PO PRN (18:22)
[2021-04-28 19:23] VITALS: BP 122/73
[2021-04-28] MEDS: FAMOTIDINE 20 MG TABLET PO SCH (21:15)
[2021-04-29 00:10] VITALS: BP 114/78
[2021-04-29 06:31] VITALS: BP 123/78
[2021-04-29] MEDS: ENOXAPARIN ** NOTE DOSE ** SYRINGE SQ SCH ×2 (08:06→20:24)
[2021-04-29] MEDS: ZINC SULFATE 220 MG CAPSULE. PO SCH (08:07)
[2021-04-29] MEDS: ASCORBIC ACID 1,000 MG TABLET PO SCH (08:07)
[2021-04-29] MEDS: DEXAMETHASONE SOD PHOS 10 MG/ML VIAL. IVP SCH (08:07)
[2021-04-29] MEDS: FAMOTIDINE 20 MG TABLET PO SCH ×2 (08:07→20:24)
[2021-04-29] MEDS: BUDESONIDE 0.5 MG/2 ML NEBU NEB SCH ×2 (08:07→20:24)
[2021-04-29] MEDS: AZITHROMYCIN 500 MG in IV NORMAL SALINE 250ML 250 ML IV SCH (09:09)
--- NOTE | 2021-04-29 09:26 | PN ---
DATE: 04/29/2021 ATTENDING PHYSICIAN: Dr. Martin. SUBJECTIVE: The patient is nauseated, having some dry heaves. She is down to 4.5 liters. She is very reluctant about going home. She has a very flat affect. OBJECTIVE FINDINGS: VITAL SIGNS: Blood pressure this morning is 123/78, pulse is 85 and regular. She is afebrile. Oxygen saturation 98% on 4.5 liters. HEENT: Head is without trauma. Pupils are reactive. Sclerae nonicteric. Oropharynx clear. NECK: Supple, no bruits. LUNGS: Fairly good respirations with good breath sounds. Minimal rhonchi in the bases. CARDIOVASCULAR: Showed regular heart tones. No gallop. ABDOMEN: Soft. EXTREMITIES: Without edema. ASSESSMENT: A 25-year-old female with, 1. COVID pneumonia. 2. Acute hypoxemic respiratory failure, requiring supplemental oxygen. 3. Morbid obesity. 4. Some nausea this morning related to her infection. PLAN: 1. Supplemental oxygen is to be weaned down. 2. Empiric Lovenox. 3. Empiric steroids. 4. Follow up chest x-ray today. AMRIT DR: Rachna TID: [id number]
[2021-04-29 10:13] VITALS: BP 118/64
--- NOTE | 2021-04-29 12:35 | NUR ---
KADEN PT TOOK ALL MORNING MEDICATION EXCEPT FOR VITAMIN C. SHE STATED "I CANNOT TAKE THE VITAMIN C IT MAKES ME PUKE". SHE SWALLED 1 PILL AND LEFT THE OTHER. PT STATES SHE DID NOT SLEEP WELL LASTNIGHT AND HAS BEEN SLEEPING DURING NURSING ROUNDS.
[2021-04-29 14:27] VITALS: BP 123/76
[2021-04-29] MEDS: ACETAMINOPHEN 500 MG TABLET PO PRN (14:30)
[2021-04-29 20:14] VITALS: BP 111/76
[2021-04-29] MEDS: LACTOBACILLUS RHAMNOSUS GG 1 CAPSULE. PO SCH (20:24)
[2021-04-29 23:34] VITALS: BP 120/80
--- NOTE | 2021-04-30 03:45 | RAD ---
AP chest x ray HISTORY: Shortness of breath. COMPARISON: Chest x-ray April 27, 2021 FINDINGS: Heart size is stable. Mediastinal silhouette is normal. No pneumothorax. No pleural effusio ns. Lower lobe greater than upper lobe pulmonary opacities again demonstrated there is mild increased density of the opacities at the perihilar lungs since the prior exam the lower lobe opacities are gr ossly stable. IMPRESSION: Mild worsening of the pulmonary opacities as described above. Electronically signed by: Lb Pérez MD (04/30/2021 3:43 AM) [facility]
[2021-04-30 06:07] VITALS: BP 130/85
[2021-04-30 07:46] LABS: BASO # 0.1 x10^3/uL (0.0-0.2); BASO % 1 % (0-3); EOS # 0.2 x10^3/uL (0.0-0.7); EOS % 4 % (0-3); HEMATOCRIT 35.3 % (36.0-47.0); HEMOGLOBIN 11.7 g/dL (12.0-15.5); LYMPH # 1.7 x10^3/uL (1.0-4.8); LYMPH % 24 % (24-48); MEAN CORPUSCULAR HEMOGLOBIN 29 pg (25-35); MEAN CORPUSCULAR HGB CONC 33 g/dL (31-37); MEAN CORPUSCULAR VOLUME 88 fL (79-100); MONO # 0.6 x10^3/uL (0.0-1.1); MONO % 8 % (0-9); NEUT # 4.4 x10^3uL (1.8-7.7); NEUT % 63 % (31-73); PLATELET COUNT 307 x10^3/uL (140-400); RED BLOOD COUNT 4.03 x10^6/uL (3.50-5.40)
[2021-04-30] MEDS: BUDESONIDE 0.5 MG/2 ML NEBU NEB SCH ×2 (08:00→19:58)
[2021-04-30 08:05] LABS: ALBUMIN 2.6 g/dL (3.4-5.0); ALBUMIN/GLOBULIN RATIO 0.7 (1.0-1.7); CALCIUM 8.2 mg/dL (8.5-10.1); CREATININE 0.7 mg/dL (0.6-1.0); TOTAL BILIRUBIN 0.4 mg/dL (0.2-1.0); TOTAL PROTEIN 6.5 g/dL (6.4-8.2)
[2021-04-30] MEDS: LACTOBACILLUS RHAMNOSUS GG 1 CAPSULE. PO SCH ×2 (08:44→20:38)
[2021-04-30] MEDS: ENOXAPARIN ** NOTE DOSE ** SYRINGE SQ SCH ×2 (08:44→20:38)
[2021-04-30] MEDS: DEXAMETHASONE SOD PHOS 10 MG/ML VIAL. IVP SCH (08:45)
[2021-04-30] MEDS: FAMOTIDINE 20 MG TABLET PO SCH ×2 (08:45→20:38)
[2021-04-30] MEDS: ZINC SULFATE 220 MG CAPSULE. PO SCH (08:45)
[2021-04-30] MEDS: AZITHROMYCIN 500 MG in IV NORMAL SALINE 250ML 250 ML IV SCH (09:00)
[2021-04-30] MEDS: ASCORBIC ACID 1,000 MG TABLET PO SCH (09:00)
[2021-04-30 10:37] VITALS: BP 112/61
--- NOTE | 2021-04-30 13:18 | NUR ---
NURS NOTE PT IS AWAKE AND ALERT ASKING QUESTIONS REGARDING CT SCAN. PT STATES THAT SHE IS FEELING MUCH BETTER THAN WHEN SHE CAME IN. PT STATES SHE HAS BEEN ABLE TO GET UP AND DOWN TO THE BATHROOM WITHOUT FEELING SOB AND HER O2 DROPPING. PT IS NOTICEABLY LESS SOB AT REST. PT RESTING IN BED WATCHING TV. ALL NEEDS MET AT THIS TIME.
[2021-04-30 15:05] VITALS: BP 118/60
[2021-04-30 19:00] VITALS: BP 137/87
[2021-04-30 23:00] VITALS: BP 127/74
--- NOTE | 2021-05-01 00:25 | PN ---
DATE: 04/30/2021 SUBJECTIVE: The patient is sitting slightly propped up in bed, in no apparent distress. She is not tachypneic, maintaining her oxygen saturation at 96% on 4 liters of oxygen. When she walked to the bathroom and came back, her oxygen saturation dropped down to 91-92%. PHYSICAL EXAMINATION: GENERAL: When I examined her, she looked well and was clearly in no apparent respiratory distress. She is somewhat pale, not jaundiced, cyanosed, no lymphadenopathy, no thyromegaly, no jugular venous distention. No limb edema. VITAL SIGNS: Heart rate was 86, blood pressure was 112/61, temperature was 97.9, respiratory rate was 16, and oxygen saturation was 95% on 4 liters of oxygen. HEAD, EYES, EARS, NOSE, AND THROAT: Normocephalic, atraumatic. NECK: Supple. HEART: Showed normal first and second heart sounds. No gallop, rub, or murmur. CHEST: Shows central trachea, equal bilateral chest expansion, air entry, vesicular breath sounds with bilateral basal crepitation posteriorly. No audible rhonchi. ABDOMEN: Distended, soft, nontender. NEUROLOGIC: She was grossly intact. Her intake was 1740, no output was recorded. LABORATORY DATA: This morning showed a white cell count 7000, hemoglobin 12, hematocrit 35, MCV 88, and platelet count 307,000. Her chemistry showed a serum sodium 142, potassium 4, chloride 106, bicarbonate 27, anion gap of 9, BUN 11, creatinine 0.7. Estimated GFR was 102 mL per minute. Her glucose was 92, calcium was 8.2. Total bilirubin and alkaline phosphatase were normal. AST, ALT elevated, but trending down. Her total protein was 6.5, albumin 2.6. Her prothrombin time, INR, and APTT are normal and her coronavirus PCR was positive. Her influenza A and B were negative. Her chest x-ray as of yesterday showed mild worsening of the pulmonary opacities and there is no pneumothorax or pleural effusion. The mediastinal silhouette is normal. The heart size is normal. ASSESSMENT: In summary, this is a 25-year-old female patient with: 1. COVID-19 pneumonia. 2. Acute hypoxic respiratory failure. 3. Morbid obesity. PLAN: To continue with IV steroids, antibiotics, supplemental oxygen, titrate the oxygen down. She is doing 96% on 4 liters of oxygen. We will cut down the oxygen to 3 liters. We will see her again tomorrow and might have to do a 6-minute walk and she probably can be discharged home on oxygen. WINSTON DR: Yony TID: [id number]
[2021-05-01 05:00] VITALS: BP 137/84
[2021-05-01 06:57] LABS: BASO % 0 % (0-3); EOS # 0.2 x10^3/uL (0.0-0.7); EOS % 2 % (0-3); HEMATOCRIT 36.7 % (36.0-47.0); HEMOGLOBIN 11.9 g/dL (12.0-15.5); LYMPH % 22 % (24-48); MEAN CORPUSCULAR HEMOGLOBIN 29 pg (25-35); MEAN CORPUSCULAR HGB CONC 33 g/dL (31-37); MEAN CORPUSCULAR VOLUME 88 fL (79-100); MONO # 0.6 x10^3/uL (0.0-1.1); MONO % 7 % (0-9); NEUT # 6.2 x10^3uL (1.8-7.7); NEUT % 69 % (31-73); PLATELET COUNT 373 x10^3/uL (140-400); RED BLOOD COUNT 4.16 x10^6/uL (3.50-5.40); RED CELL DISTRIBUTION WIDTH 14.6 % (11.5-14.5)
[2021-05-01 06:59] LABS: ALBUMIN 2.6 g/dL (3.4-5.0); ALBUMIN/GLOBULIN RATIO 0.6 (1.0-1.7); CALCIUM 8.2 mg/dL (8.5-10.1); CREATININE 0.7 mg/dL (0.6-1.0); POTASSIUM 3.7 mmol/L (3.5-5.1); TOTAL BILIRUBIN 0.3 mg/dL (0.2-1.0); TOTAL PROTEIN 6.9 g/dL (6.4-8.2)
[2021-05-01] MEDS: LACTOBACILLUS RHAMNOSUS GG 1 CAPSULE. PO SCH (08:03)
[2021-05-01] MEDS: FAMOTIDINE 20 MG TABLET PO SCH (08:03)
[2021-05-01] MEDS: ZINC SULFATE 220 MG CAPSULE. PO SCH (08:04)
[2021-05-01] MEDS: DEXAMETHASONE SOD PHOS 10 MG/ML VIAL. IVP SCH (08:04)
[2021-05-01] MEDS: ENOXAPARIN ** NOTE DOSE ** SYRINGE SQ SCH ×2 (08:05→08:44)
[2021-05-01] MEDS: ASCORBIC ACID 1,000 MG TABLET PO SCH (08:08)
[2021-05-01] MEDS: IPRATRPIUM/ALBUTEROL 0.5/2.5MG 3 ML NEBU. NEB PRN (08:11)
[2021-05-01] MEDS ORDERED: AZITHROMYCIN 250 MG TABLET. PO SCH (09:00)
[2021-05-01] MEDS ORDERED: CEFDINIR 300 MG CAPSULE PO SCH (09:00)
[2021-05-01] MEDS: BUDESONIDE 0.5 MG/2 ML NEBU NEB SCH (10:34)
[2021-05-01 10:52] VITALS: BP 117/65
--- NOTE | 2021-05-01 11:38 | NUR ---
NURS NOTE THIS RN SPOKE WITH RT AND CM TO OBTAIN A 6MIN WALK TEST FOR POSSIBLE HOME 02. CM IS TAKING CARE OF OBSERVATION.
[2021-05-01] MEDS ORDERED: DEXA6TAB6 PO (15:12)
[2021-05-01] MEDS ORDERED: CEFD300C PO (15:12)
--- NOTE | 2021-05-01 17:07 | NUR ---
DISCHARGE NOTE PT TELE AND IV D/C. PT LEFT ON 4L AT HOME O2. O2 ARRIVING TO HOME WITHIN 30 MINS OF PT DISCHARGE TO SET UP AT HOME O2. PT LEFT WITH ALL BELONGS. EDUCATION AND SCRIPTS GIVEN TO PT. PT UNDERSTOOD EDUCATION. PICKED UP BY .
== END 2021-05-01 17:00 | disposition home or self-care (01) | DRG 177 ==
LOC: ER 06:23 → 1 SOUTH 04-27 15:13
PROVIDERS: ADMIT Hospitalist; ATTEND Hospitalist
DX: U07.1 COVID-19 (principal); J12.82 Pneumonia due to coronavirus disease 2019; J96.01 Acute respiratory failure with hypoxia; Z68.43 Body mass index [BMI] 50.0-59.9, adult; E66.01 Morbid (severe) obesity due to excess calories; J45.909 Unspecified asthma, uncomplicated; Z88.0 Allergy status to penicillin; Z28.3 Underimmunization status
CPT/HCPCS: 36415; 71045; 80053; 82803; 83605; 83735; 83880; 84484; 85007; 85025; 85610; 85730; 87040; 87426; 87804; 93005; 94618; 94640; 96365; 96366; 96367; 96372; 96375; 96376; G0238; J0456; J0696; J1100; J1650; J3490; J7050; U0003; 99285-25; J7030